=== PATIENT | male | born 1945 | race Caucasian/White ===

== ENCOUNTER → 2016-11-14 | Outpatient (CLI) | payer MEDICARE | END | disposition home or self-care (01) | LOC: LAB.O 12:25 | PROVIDERS: ATTEND Nurse Practitioner Family | DX: I50.9 Heart failure, unspecified (principal) ==

== ENCOUNTER → 2016-12-13 | Outpatient (CLI) | payer MEDICARE | END | disposition home or self-care (01) | LOC: LAB.O 14:00 | PROVIDERS: ATTEND Nurse Practitioner Family | DX: E11.9 Type 2 diabetes mellitus without complications (principal); I10 Essential (primary) hypertension ==

== ENCOUNTER → 2018-04-02 | Outpatient (CLI) | payer MEDICARE ==
--- NOTE | 2018-04-02 14:49 | RAD ---
EXAM DESCRIPTION: Chest,2 Views CLINICAL HISTORY: CHEST PAIN COMPARISON: Previous study June 21, 2016 TECHNIQUE: PA/lateral FINDINGS: There is no acute appearing cardiac or pulmonary abnormality. Heart size is normal with normal pulmonary vascularity. No pleural effusion or pneumothorax. Lungs are clear with no consolidating infiltrate. Lateral view shows intact sternum and T-spine. Sternotomy wires are present. IMPRESSION: No acute process is identified in the chest. Electronically signed by: Neil Green MD 04/02/2018 2:48 PM CDT
== END ==
LOC: LAB.O 14:04
PROVIDERS: ATTEND Nurse Practitioner Family
DX: I25.110 Atherosclerotic heart disease of native coronary artery with unstable angina pectoris (principal)

== ENCOUNTER → 2018-04-13 | Outpatient (CLI) | payer MEDICARE | LOC: LAB.O 11:09 | PROVIDERS: ATTEND Nurse Practitioner Family | DX: R07.89 Other chest pain (principal) ==

== ENCOUNTER → 2018-07-05 | Outpatient (CLI) | payer MEDICARE ==
--- NOTE | 2018-07-05 14:47 | US ---
EXAM DESCRIPTION: Carotid Duplex CLINICAL HISTORY: Z86.79 previous bilateral carotid endarterectomy COMPARISON: Previous study December 21, 2015 TECHNIQUE: Carotid Doppler ultrasound FINDINGS: Right Submitted images show no significant stenosis in the common carotid, internal carotid or external carotid arteries. Positive plaque at the right carotid bifurcation with elevated flow velocity in the right external carotid artery consistent with high-grade proximal stenosis. The following flow velocities were obtained: Common carotid artery peak systolic flow velocity measures 61 centimeters per second. Internal carotid artery peak systolic flow velocity measures 81 centimeters per second. External carotid artery peak systolic flow velocity measures 313 centimeters per second. This suggests a high-grade proximal stenosis of the right ECA. Flow in the right vertebral artery is antegrade. The right internal carotid to common carotid peak systolic flow velocity ratio equals 1.3 which is normal. Left Submitted images show mild plaque in the left carotid bulb without significant narrowing. Mild plaque in the proximal left ICA.. The following flow velocities were obtained: Common carotid artery peak systolic flow velocity measures 56 centimeters per second. Internal carotid artery peak systolic flow velocity measures 128 centimeters per second. This would indicate mild proximal stenosis approximately 50-69 %. The degree of narrowing appears much less however. External carotid artery peak systolic flow velocity measures 17.2 centimeters per second. This is abnormally low and may indicate very severe or critical stenosis. Flow in the left vertebral artery is antegrade. The left internal carotid to common carotid peak systolic flow velocity ratio of 2.3 is abnormally elevated suggesting 50-69% stenosis. Previous study in December 2015 showed high velocity flow in the right and left internal and external carotid arteries consistent with high-grade stenoses. IMPRESSION: High velocity flow in the right external carotid artery consistent with high-grade proximal stenosis. Elevated flow velocity in the proximal left internal carotid artery suggesting 50-69% stenosis. Low velocity flow in the left external carotid artery. Electronically signed by: Neil Green MD 07/05/2018 2:46 PM CDT
== END ==
LOC: LAB.O 12:12
PROVIDERS: ATTEND Nurse Practitioner Family
DX: I65.23 Occlusion and stenosis of bilateral carotid arteries (principal); Z86.79 Personal history of other diseases of the circulatory system